=== PATIENT | male | born 1950 | race Caucasian/White ===

== ENCOUNTER 2016-08-18 08:34 | Emergency (ER) | payer BC ==
--- NOTE | 2016-08-18 09:12 | UC ---
Respiratory Complaint HPI - HPI Summary HPI Summary: COUGH AND SOB. ONSET 10 DAYS AGO . AT ONSET HE FELT FEVERISH, BODY ACHES. FEELING SOMEWHAT BETTER FAR BODY ACHES GO BUT COUGH IS WORSE AND FEELS MORE SOB. Cough worsened. Concern it is pneumonia. body aches and laryngitis gone for about 5 days . [ End ] - History of Current Complaint Chief Complaint: UCRespiratory Stated Complaint: COUGH, SHORTNESS OF BREATH Time Seen by Provider: 08/18/16 09:06 Hx Obtained From: Patient Onset/Duration: Gradual Onset Timing: Constant Severity Initially: Mild Severity Currently: Moderate Aggravating Factors: Exertion Alleviating Factors: Nothing Associated Signs And Symptoms: Positive: Nasal Congestion, Hoarseness, Sinus Discomfort - Risk Factors Cardiac Risk Factors: Hypertension - Allergies/Home Medications Allergies/Adverse Reactions: Allergies Allergy/AdvReac Type Severity Reaction Status Date / Time No Known Allergies Allergy Verified 08/18/16 08:38 Home Medications: Home Medications Xdtidhkuradef-Ggpogkyduk-Ngxsu [[place]-Winkelman Plus Day/Nig] 1 catalina PO PRN [History] Ramipril CAP* [Altace CAP*] 5 mg PO DAILY 08/18/16 [History Confirmed 08/18/16] PMH/Surg Hx/FS Hx/Imm Hx Previously Healthy: Yes Cardiovascular History: Hypertension - Surgical History Surgical History: Yes Surgery Procedure, Year, and Place: GALL BLADDSER REMOVAL , LEFT AND RIGHT HIP REPLACMENTS. DEGLOVED SKIN OF LEFT LEG INJURY - Family History Known Family History: Positive: None - Social History Occupation: Employed Full-time Lives: With Family Alcohol Use: Occasionally Substance Use Type: None Smoking Status (MU): Former Smoker Type: Cigarettes Have You Smoked in the Last Year: No When Did the Patient Quit Smoking/Using Tobacco: 2009 Review of Systems Constitutional: Fever, Chills, Fatigue Skin: Negative Eyes: Negative ENT: Nasal Discharge Respiratory: Shortness Of Breath, Cough Cardiovascular: Negative Gastrointestinal: Negative Genitourinary: Negative Motor: Negative Neurovascular: Negative Musculoskeletal: Negative Neurological: Negative Psychological: Negative All Other Systems Reviewed And Are Negative: Yes Physical Exam Triage Information Reviewed: Yes Appearance: Well-Appearing, No Pain Distress, Well-Nourished Vital Signs: Initial Vital Signs Temp 96.9 F 08/18/16 08:40 Pulse 92 08/18/16 08:40 Resp 24 08/18/16 08:40 BP 157/87 08/18/16 08:40 Pulse Ox 98 08/18/16 08:40 Vital Signs Reviewed: Yes Eye Exam: Normal ENT Exam: Normal Dental Exam: Normal Neck exam: Normal Neck: Positive: 1 Respiratory Exam: Normal Respiratory: Positive: Chest non-tender, No respiratory distress, No accessory muscle use, Wheezing - RUL Cardiovascular Exam: Normal Abdominal Exam: Normal Musculoskeletal Exam: Normal Neurological Exam: Normal Psychological Exam: Normal Skin Exam: Normal UC Diagnostic Evaluation - Laboratory O2 Sat by Pulse Oximetry: 98 Respiratory Course/Dx - Course Course Of Treatment: present for > 1 week and cough and congestion worsening, treat at this time tp prevent pneumonia - Differential Dx/Diagnosis Differential Diagnosis/HQI/PQRI: Bronchitis, Lower Resp Infection, Sinusitis Provider Diagnoses: bronchitis Discharge - Discharge Plan Condition: Good Disposition: HOME Prescriptions: Albuterol HFA INHALER* [Ventolin HFA Inhaler*] 1 - 2 puff INH Q6H PRN #1 mdi PRN Reason: Wheezing Amoxicillin/Clavulanate TAB* [Augmentin TAB 875*] 875 mg PO BID #20 tab Benzonatate [Benzonatate 200 MG CAP] 200 mg PO TID PRN #20 cap PRN Reason: Cough Patient Education Materials: Acute Bronchitis (ED) Additional Instructions: Please follow up with your primary care doctor in 3 days to ensure you are improving in your symptoms
[2016-08-18 09:20] VITALS: BP 157/87
== END 2016-08-18 09:24 | disposition home or self-care (01) ==
LOC: UCCORT 08:34
DX: J40 Bronchitis, not specified as acute or chronic (principal); I10 Essential (primary) hypertension; Z90.49 Acquired absence of other specified parts of digestive tract; Z96.643 Presence of artificial hip joint, bilateral; Z87.891 Personal history of nicotine dependence
CPT/HCPCS: 93005; 99212; G0463

== ENCOUNTER 2016-08-22 16:16 | Emergency (ER) | payer BC ==
[2016-08-22 16:35] VITALS: BP 138/75
[2016-08-22] MEDS ORDERED: Albuterol/Ipratropium NEB.SOL* Albuterol 2.5 MG/Ipratropium 0.5 MG 3 ML INH ONE (16:46)
--- NOTE | 2016-08-22 17:05 | UC ---
Respiratory Complaint HPI - HPI Summary HPI Summary: Patient presents with worsening cough, SOB, chest pain with cough and weakness for over 2 weeks now. He was seen here last week and was prescribed tessalon and augmentin without relief. He is still feeling SOB, with sweats, aches and chills. Cough and SOB worse with recumbent position, better with orthostasis. He denies sleep apnea. Denies COPD or other lung problems. Unknown fever. Feels though he coughed so hard, he pulled a muscle. He is obese and has difficulty breathing on exam. Unable to speak in full sentences. He is a business analyst. Smoking history is [address] Osborn saw him 4 days ago in , was given albuterol and tessalon and augmentin without relief. Today after nebulizer treatment, symptoms did not improve. Denies chest pain today, but notes to chest pain 4 days ago. EKG 4 days ago NSR. Chest xray with nipple markers shows pulmonary nodule in the left lower lung. Treatment options discussed, but recommended to to ED for further imaging and workup d/t not wanting to follow up with doctors. - History of Current Complaint Chief Complaint: UCRespiratory Stated Complaint: COUGH/BRONCHITIS Time Seen by Provider: 08/22/16 16:40 Hx Obtained From: Patient Onset/Duration: Gradual Onset Timing: Constant Severity Initially: Moderate Severity Currently: Moderate Pain Intensity: 5 Pain Scale Used: 0-10 Numeric Character: Cough: Productive Aggravating Factors: Deep Breaths, Recumbent Position Alleviating Factors: Upright Position, Spontaneous Resolution Associated Signs And Symptoms: Positive: Dyspnea, Pleuritic Chest Pain, URI, Nasal Congestion, Sinus Discomfort - Risk Factors Pulmonary Embolism Risk Factors: Negative Cardiac Risk Factors: Negative Tuberculosis Risk Factors: Negative - Allergies/Home Medications Allergies/Adverse Reactions: Allergies Allergy/AdvReac Type Severity Reaction Status Date / Time Benzonatate Allergy Intermediate Dizziness Verified 08/22/16 16:25 PMH/Surg Hx/FS Hx/Imm Hx Previously Healthy: Yes - Surgical History Surgical History: Yes Surgery Procedure, Year, and Place: GALL BLADDSER REMOVAL , LEFT AND RIGHT HIP REPLACMENTS. DEGLOVED SKIN OF LEFT LEG INJURY - Family History Known Family History: Positive: None - Social History Occupation: Employed Full-time Lives: With Family Alcohol Use: Occasionally Substance Use Type: None Smoking Status (MU): Former Smoker Type: Cigarettes Have You Smoked in the Last Year: No When Did the Patient Quit Smoking/Using Tobacco: 2009 Review of Systems Constitutional: Fever, Fatigue Skin: Negative Eyes: Negative ENT: Nasal Discharge Respiratory: Shortness Of Breath, Cough Cardiovascular: Chest Pain Gastrointestinal: Negative Motor: Negative Neurovascular: Negative Neurological: Negative Psychological: Negative All Other Systems Reviewed And Are Negative: Yes Physical Exam Triage Information Reviewed: Yes Appearance: Ill-Appearing, Obese Vital Signs: Initial Vital Signs Temp 97.7 F 08/22/16 16:27 Pulse 103 08/22/16 16:27 Resp 26 08/22/16 16:27 BP 138/75 08/22/16 16:27 Pulse Ox 95 08/22/16 16:27 Vital Signs Reviewed: Yes Eye Exam: Normal Eyes: Positive: Conjunctiva Clear ENT: Positive: Hearing grossly normal, Pharynx normal Neck exam: Normal Neck: Positive: Supple, Nontender Respiratory: Positive: Respiratory distress, Decreased breath sounds, Rhonchi - RLL Cardiovascular Exam: Normal Cardiovascular: Positive: RRR Musculoskeletal Exam: Normal Musculoskeletal: Positive: Strength Intact Neurological: Positive: Alert Psychological Exam: Normal Psychological: Positive: Normal Response To Family UC Diagnostic Evaluation - Laboratory O2 Sat by Pulse Oximetry: 95 Respiratory Course/Dx - Course Course Of Treatment: Patient presents with worsening cough, SOB since 2 weeks. He has been on Amoxicillin, tessalon and albuterol without relief. See HPI. Patient is encouraged to go to ED for further workup of left lower lung nodule seen on xray. - Differential Dx/Diagnosis Differential Diagnosis/HQI/PQRI: Bronchitis, Laryngitis, Lower Resp Infection, Sinusitis Provider Diagnoses: Bronchitis/ lung nodule Discharge - Discharge Plan Condition: Stable Disposition: HOME Prescriptions: Ipratropium HFA INHALER(NF) [Atrovent Hfa Inhaler(NF)] 1 puff INH QID #1 mdi guaiFENesin/CODIEN 100MG-10MG* [Robitussin AC 100Mg-10Mg*] 10 ml PO BEDTIME # 100 udc MDD 10 predniSONE TAB* [Deltasone TAB*] 50 mg PO DAILY #5 tab MDD 1 Patient Education Materials: Acute Bronchitis (ED) Referrals: Non Staff,Doctor [Primary Care Provider] - Additional Instructions: Follow up with PCP Prednisone 50mg daily for 5 days Ipratroprium up to four puffs daily for shortness of breath Robitussin with Codeine 2 teaspoons every night before bed If you develop worsening symptoms, please go to the ED.
--- NOTE | 2016-08-22 17:21 | RAD ---
INDICATION: Cough and rhonchi in the right lower lobe. COMPARISON: There are no prior studies available for comparison. TECHNIQUE: Dual-energy PA and lateral views of the chest were obtained. FINDINGS: The heart is within normal limits in size. Mediastinal and hilar contours appear within normal limits. The lungs are hyperinflated. There is a faint 1 cm nodular density which projects above the left lung base possibly representing a nipple shadow although nonspecific. The lungs are otherwise clear. No pleural effusion is present. IMPRESSION: 1. NO EVIDENCE FOR ACUTE FINDING. 2. THERE IS A FAINT 1 CM NODULAR DENSITY WHICH PROJECTS ABOVE THE LEFT LUNG BASE POSSIBLY REPRESENTING A NIPPLE SHADOW. RECOMMEND A REPEAT PA FILM WITH NIPPLE MARKERS.
--- NOTE | 2016-08-22 18:00 | RAD ---
INDICATION: Shortness of breath, repeat with nipple markers. COMPARISON: Comparison is made with prior chest x-ray study of the same date. TECHNIQUE: Dual-energy PA views of the chest were obtained. FINDINGS: The heart is within normal limits in size. Mediastinal and hilar contours appear within normal limits. The lungs are slightly hyperinflated. The previously noted small nodular density at the lateral left lung base does not correspond with the patient's nipple shadow. The lungs are otherwise clear. No pleural effusion is seen. IMPRESSION: THE PREVIOUSLY NOTED FAINT NODULAR DENSITY AT THE LEFT LUNG BASE DOES NOT CORRESPOND WITH THE PATIENT'S NIPPLE SHADOW. RECOMMEND AN OUTPATIENT NONCONTRAST CT OF THE CHEST FOR FURTHER EVALUATION.
== END 2016-08-22 18:10 | disposition home or self-care (01) ==
LOC: UCCORT 16:16
DX: J40 Bronchitis, not specified as acute or chronic (principal); R91.1 Solitary pulmonary nodule; Z87.891 Personal history of nicotine dependence
CPT/HCPCS: 71010; 71020; 99213; A9270-GY; G0463

== ENCOUNTER 2018-12-29 09:47 | Emergency (ER) | payer BC ==
--- OUTSIDE RECORDS SUMMARY | 2018-12-29 10:21 | XMS REPORT | Continuity of Care Document ---
:1950 External Reference #:[id number] Author Name Yoshi Gill DO, MPH Address [address] [facility], [address] [place] [address] Care Team Providers Name Role Phone Faraz Webber M.D. - Family Care Team Information Regional Extension Service Specialist [phone] Medicine Ad Bentley N.P. - Internal Care Team Information Regional Extension Service Specialist [phone] Medicine Problems Description No Information Available Social History Type Date Description Comments Sex Unknown Cigars Former Cigar Smoker .An Occasional Cigar ETOH Use Rarely consumes alcohol Tobacco Use Start: Unknown End: Unknown Patient is a former smoker Smoking Status Reviewed: 11/19/18 Patient is a former smoker Allergies, Adverse Reactions, Alerts Active Allergies Reaction Severity Comments Date Acetaminophen nausea 01/26/2014 Inactive Allergies NKDA 06/24/2008 Medications Active Medications SIG Qnty Indications Ordering Provider Date Oxycodone HCL si-2 by mouth 240tabs Yoshi Gill DO, 04/01/2015 30mg every 4-6 hours MPH Tablets as directed chronic pain patient Zipsor 1 by mouth three 90caps Yoshi Gill DO, 01/26/2014 25mg Capsules times a day as MPH directed chronic pain. Silodosin 1 by mouth every Unknown 8mg day Capsules Immunizations Description No Information Available Vital Signs Date Vital Result Comment 11/19/2018 10:49am BP Systolic 140 mmHg BP Diastolic 82 mmHg Heart Rate 86 /min Respiratory Rate 20 /min Height 67 inches 5'7" Weight 284.00 lb Pain Level 7 Pain at this time. Pain Level With Medicine 6 on average with meds Pain Level Without Medicine 9 without meds BMI (Body Mass Index) 44.5 kg/m2 10/20/2018 10:47am BP Systolic 142 mmHg BP Diastolic 86 mmHg Heart Rate 84 /min Respiratory Rate 20 /min Height 67 inches 5'7" Weight 287.00 lb Pain Level 5 Pain at this time. 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 Office Visit 09/12/2018 11:15a Main Office as Yoshi Gill G89.29 Other chronic Of 04/18/13 DO, MPH pain M25.551 Pain in right hip M25.552 Pain in left hip M54.5 Low back pain 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 Office Visit 08/21/2018 11:00a Main Office as Yoshi Gill G89.29 Other chronic Of 04/18/13 DO, MPH pain M54.5 Low back pain M25.551 Pain in right hip M25.552 Pain in left hip 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 Office Visit 07/22/2018 10:45a Main Office as Yoshi Gill G89.29 Other chronic Of 04/18/13 DO, MPH pain M54.5 Low back pain M25.551 Pain in right hip M25.552 Pain in left hip E66.01 Morbid (severe) obesity due to excess calories 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 Z71.89 Other specified counseling Office Visit 06/20/2018 10:45a Main Office as Yoshi Gill G89.29 Other chronic Of 04/18/13 DO, MPH pain M54.5 Low back pain M25.552 Pain in left hip M25.551 Pain in right hip Z79.891 FPC (current) use of opiate analgesic Office Visit 05/22/2018 11:15a Main Office as Yoshi Gill, G89.29 Other chronic Of 04/18/13 DO, MPH pain M25.552 Pain in left hip M25.551 Pain in right hip M54.5 Low back pain 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 Assessments Date Code Description Provider 11/19/2018 G89.29 Other chronic pain Gill, Yoshi, DO, MPH 11/19/2018 M25.552 Pain in left hip Gill, Yoshi, DO, MPH 11/19/2018 M25.551 Pain in right hip Gill, Yoshi, DO, MPH 11/19/2018 M54.5 Low back pain Gill, Yoshi, DO, MPH 11/19/2018 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 Gill, Yoshi , DO, MPH 10/20/2018 G89.29 Other chronic pain Gill, Yoshi, DO, MPH 10/20/2018 M54.5 Low back pain Gill, Yoshi, DO, MPH 10/20/2018 M25.552 Pain in left hip Gill, Yoshi, DO, MPH 10/20/2018 M25.551 Pain in right hip Gill, Yoshi, DO, MPH 10/20/2018 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 Gill, Yoshi , DO, MPH 09/12/2018 G89.29 Other chronic pain Gill, Yoshi, DO, MPH 09/12/2018 M25.551 Pain in right hip Gill, Yoshi, DO, MPH 09/12/2018 M25.552 Pain in left hip Gill, Yoshi, DO, MPH 09/12/2018 M54.5 Low back pain Gill, Yoshi, DO, MPH 09/12/2018 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 Gill, Yoshi , DO, MPH 08/21/2018 G89.29 Other chronic pain Gill, Yoshi, DO, MPH 08/21/2018 M54.5 Low back pain Gill, Yoshi, DO, MPH 08/21/2018 M25.551 Pain in right hip Gill, Yoshi, DO, MPH 08/21/2018 M25.552 Pain in left hip Gill, Yoshi, DO, MPH 08/21/2018 Z79.891 FPC (current) use of opiate analgesic Gill, Yoshi , DO, MPH 07/22/2018 G89.29 Other chronic pain Gill, Yoshi, DO, MPH 07/22/2018 M54.5 Low back pain Gill, Yoshi, DO, MPH 07/22/2018 M25.551 Pain in right hip Gill, Yoshi, DO, MPH 07/22/2018 M25.552 Pain in left hip Gill, Yoshi, DO, MPH 07/22/2018 E66.01 Morbid (severe) obesity due to excess Gill, Yoshi, DO, MPH calories 07/22/2018 Z79.891 FPC (current) use of opiate analgesic Gill, Yoshi , DO, MPH 07/22/2018 Z71.89 Other specified counseling Gill, Yoshi, DO, MPH 06/20/2018 G89.29 Other chronic pain Gill, Yoshi, DO, MPH 06/20/2018 M54.5 Low back pain Gill, Yoshi, DO, MPH 06/20/2018 M25.552 Pain in left hip Gill, Yoshi, DO, MPH 06/20/2018 M25.551 Pain in right hip Gill, Yoshi, DO, MPH 06/20/2018 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 Symptoms and complaints discussed and reviewed today. No significant changes in physical findings. Continue current medical pain management.M25.552 Pain in left hipM25.551 Pain in right hipComments:Chronic. Symptoms and complaints discussed and reviewed today. No significant changes in physical findings. Continue current medical pain management.M54.5 Low back painComments:Chronic. Symptoms and complaints discussed and reviewed today.No changes in physical findings. Patient is stable and comfortable when current medical therapy is rendered.Z79.891 FPC (current) use of opiate analgesicNew Labs:Urine Drug Screen, Ordered: 11/19/18Comments:Urine drug screen sample taken today to monitor opiate use and to monitor use of illicit substances.Will discuss results at next appointment.The following tests were ordered:6 AM, AMPH, IVAN, KI, BUP, CARIS, COCM, COT, ETG, FENT, MCSHSG, OPI, OXY, PCP, TAPEN, XTSY, ZOLP. A urine drug test (UDT) was ordered for this patient and collected on site today. Creatinine has been ordered as well for specimen validity, not for kidney function. Preliminary UDT results are not final and should not be used to determine patient care or plan of treatment. Initially a qualitative immunoassay screen will be done. Any inconsistent or positive findings will be further tested with a more comprehensive quantitative confirmation LCMS study. It is part of the treatment process of prescribing controlled substances and is considered standard of care.AllComments:Continue current medical pain management; injection therapy, osteopathic manipulation, PT / modalities, and consults as needed to manage chronic pain.Non - opioid pain management discussed and optionsdiscussed.Side effects discussed; anticipatory guidance given. Patient clearly understand and agree with all medical treatments and suggestions. All medicines prescribed are adequate and appropriate for this patient's complaint of pain, medical history, physical, and personal goals.Goals of Treatment are to provide adequate and appropriate multidisciplinary medical pain management to increase/ maintain patient's quality of life and functionality while maintaining satisfactory side effect profile andminimizing longterm end-organ damage. Importance of regular nutrition throughout the day discussed.Activity as toleratedContinue with PCP Functional Status Description No Information Available Mental Status Description No Information Available Referrals Description No Information Available
--- OUTSIDE RECORDS SUMMARY | 2018-12-29 10:21 | XMS REPORT | Continuity of Care Document ---
:1950 External Reference #:[id number] Author Name Yoshi Gill DO, MPH Address [address] [facility] [address], [address] [place] [address] Care Team Providers Name Role Phone Faraz Webber M.D. - Family Care Team Information Client Service Supervisor [phone] Medicine Ad Bentley N.P. - Internal Care Team Information Client Service Supervisor [phone] Medicine Problems Description No Information Available Social History Type Date Description Comments Sex Unknown Cigars Former Cigar Smoker .An Occasional Cigar ETOH Use Rarely consumes alcohol Tobacco Use Start: Unknown End: Unknown Patient is a former smoker Smoking Status Reviewed: 12/19/18 Patient is a former smoker Allergies, Adverse [...] Available Vital Signs Date Vital Result Comment 12/19/2018 10:54am BP Systolic 140 mmHg BP Diastolic 86 mmHg Heart Rate 82 /min Respiratory Rate 20 /min Height 67 inches 5'7" Weight 240.00 lb Pain Level 6 Pain at this time. Pain Level With Medicine 5 on average with meds Pain Level Without Medicine 9 without meds BMI (Body Mass Index) 37.6 kg/m2 11/19/2018 10:49am BP Systolic 140 mmHg BP Diastolic 82 mmHg Heart Rate 86 /min Respiratory Rate 20 /min Height 67 inches 5'7" Weight 284.00 lb Pain Level 7 Pain at this time. 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 Office Visit 10/20/2018 10:45a Main Office as Yoshi Gill G89.29 Other chronic Of 04/18/13 DO, MPH pain M54.5 Low back pain M25.552 Pain in left hip M25.551 Pain in right hip Z79.891 intermediate (current) use of opiate analgesic Office Visit 09/12/2018 11:15a Main Office as Yoshi Gill G89.29 Other chronic Of 04/18/13 DO, MPH pain M25.551 Pain in right hip M25.552 Pain in left hip M54.5 Low back pain Z79.891 intermediate (current) use of opiate analgesic Office Visit 08/21/2018 11:00a Main Office as Yoshi Gill G89.29 Other chronic Of 04/18/13 DO, MPH pain M54.5 Low back pain M25.551 Pain in right hip M25.552 Pain in left hip 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 Office Visit 07/22/2018 10:45a Main Office as Yoshi Gill G89.29 Other chronic Of 04/18/13 DO, MPH pain M54.5 Low back pain M25.551 Pain in right hip M25.552 Pain in left hip E66.01 Morbid (severe) obesity due to excess calories Z79.891 intermediate (current) use of opiate analgesic Z71.89 Other specified counseling Assessments Date Code Description Provider 12/19/2018 G89.29 Other chronic pain Gill, Yoshi, DO, MPH 12/19/2018 M54.5 Low back pain Gill, Yoshi, DO, MPH 12/19/2018 M25.551 Pain in right hip Gill, Yoshi, DO, MPH 12/19/2018 M25.552 Pain in left hip Gill, Yoshi, DO, MPH 12/19/2018 Z79.891 intermediate (current) use of opiate analgesic Gill, Yoshi , DO, MPH 11/19/2018 G89.29 Other chronic pain Gill, Yoshi, DO, MPH 11/19/2018 M25.552 Pain in left hip Gill, Yoshi, DO, MPH 11/19/2018 M25.551 Pain in right hip Gill, Yoshi, DO, MPH 11/19/2018 M54.5 Low back pain Gill, Yoshi, DO, MPH 11/19/2018 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 Gill, Yoshi , DO, MPH 10/20/2018 G89.29 Other chronic pain Gill, Yoshi, DO, MPH 10/20/2018 M54.5 Low back pain Gill, Yoshi, DO, MPH 10/20/2018 M25.552 Pain in left hip Gill, Yoshi, DO, MPH 10/20/2018 M25.551 Pain in right hip Gill, Yoshi, DO, MPH 10/20/2018 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 Gill, Yoshi , DO, MPH 09/12/2018 G89.29 Other chronic pain Gill, Yoshi, DO, MPH 09/12/2018 M25.551 Pain in right hip Gill, Yoshi, DO, MPH 09/12/2018 M25.552 Pain in left hip Gill, Yoshi, DO, MPH 09/12/2018 M54.5 Low back pain Gill, Yoshi, DO, MPH 09/12/2018 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 Gill, Yoshi , DO, MPH 08/21/2018 G89.29 Other chronic pain Gill, Yoshi, DO, MPH 08/21/2018 M54.5 Low back pain Yoshi Gill DO, MPH 08/21/2018 M25.551 Pain in right hip Yoshi Gill DO MPH 08/21/2018 M25.552 Pain in left hip Yoshi Gill DO, MPH 08/21/2018 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 Yoshi Gill DO MPH 07/22/2018 G89.29 Other chronic pain Yoshi Gill DO MPH 07/22/2018 M54.5 Low back pain Yoshi Gill DO MPH 07/22/2018 M25.551 Pain in right hip Yoshi Gill DO MPH 07/22/2018 M25.552 Pain in left hip Yoshi Gill DO, MPH 07/22/2018 E66.01 Morbid (severe) obesity due to excess Yoshi Gill DO MPH calories 07/22/2018 Z79.891 intermediate (current) use of opiate analgesic Yoshi Gill DO, MPH 07/22/2018 Z71.89 Other specified counseling Yoshi Gill DO, MPH Plan of Treatment Future Appointment(s):01/20/2019 10:30 am - Yoshi Gill DO MPH at Main Office as Of 04/18/1409 - Yoshi Gill DO, MPHG89.29 Other chronic painComments:Chronic. Symptoms and complaints discussed and reviewed today. No significant changes in physical findings. Continue current medical pain management.M54.5 Low back painComments:Chronic. Symptoms and complaints discussed and reviewed today.No changes in physical findings. Patient is stable and comfortable when current medical therapy is rendered.M25.551 Pain in right hipComments:Chronic. Symptoms and complaints discussed and reviewed today. No significant changes in physical findings. Continue current medical pain management.M25.552 Pain in left hipComments:Chronic. Symptoms and complaints discussed and reviewed today. No significant changes in physical findings. Continue current medical pain management.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New Labs:Urine Drug Screen, Ordered: 12/19/18Comments:Urine drug screen sample taken today to monitor [...] while maintaining satisfactory side effect profile andminimizing termite inspector end-organ damage. Importance of regular nutrition throughout the day discussed.Activity as toleratedContinue with PCP Functional Status Description No Information Available Mental Status Description No Information Available Referrals Description No Information Available
[2018-12-29 10:36] VITALS: BP 156/89
--- NOTE | 2018-12-29 10:42 | UC ---
Skin Complaint HPI - HPI Summary HPI Summary: Patient presents to urgent care for evaluation of a "lump" that he noted by his right collarbone this weekend. Patient states is not painful. Patient noticed it Saturday when he was wrestling with his son. No pain no redness. No shortness of breath. No nausea vomiting. Patient with a history of hypertension remote history of smoking. Patient does not have any known history of cancer. Patient's medications reviewed this visit. - History of Current Complaint Chief Complaint: UCUpperExtremity Time Seen by Provider: 12/29/18 10:42 Stated Complaint: RIGHT SHOULDER COMPLAINT Hx Obtained From: Patient Pain Intensity: 0 - Allergy/Home Medications Allergies/Adverse Reactions: Allergies Allergy/AdvReac Type Severity Reaction Status Date / Time linagliptin Allergy Unknown Verified 12/29/18 10:23 Reaction Details Home Medications: Home Medications Diclofenac Potassium [Zipsor] 1 tab PO ONCE 12/29/18 [History Confirmed 12/29/18 ] Silodosin 4 mg PO BID 12/29/18 [History Confirmed 12/29/18] metFORMIN* [Glucophage 1000 MG TAB *] 1,000 mg PO BID 12/29/18 [History Confirmed 12/29/18] PMH/Surg Hx/FS Hx/Imm Hx Previously Healthy: Yes - Surgical History Surgical History: Yes Surgery Procedure, Year, and Place: Cholycystectomy. LEFT AND RIGHT HIP REPLACMENTS. DEGLOVED SKIN OF LEFT LEG INJURY. R carpal tunnel - Family History Known Family History: Positive: Non-Contributory - Social History Lives: With Family Alcohol Use: Rare Substance Use Type: None Smoking Status (MU): Former Smoker Type: Cigarettes Amount Used/How Often: 2PPD X 25 YRS, QUIT 2009 Have You Smoked in the Last Year: No When Did the Patient Quit Smoking/Using Tobacco: 2009 Review of Systems All Other Systems Reviewed And Are Negative: Yes Constitutional: Positive: Negative Skin: Positive: Other - right upper chest soft tissue mass Physical Exam - Summary Physical Exam Summary: Vital Signs Reviewed: Yes A+Ox3, no distress Eyes: Conjunctiva Clear, CHONG. EOM intact and full ENT: Hearing grossly normal TM x 2 clear, mmoist, uvula midline, no exudate, no erythema Neck: Positive: Supple Respiratory: Positive: No respiratory distress, No accessory muscle use + CTA throughout no w/r Cardiovascular: RRR nl s1, s2 no m/r CBT <2 sec abd soft + BS nt/nd no guarding, no distension Musculoskeletal Exam: DUMONT x 4 without difficulty Strength Intact, ROM Intact Neurological: Positive: Alert, + sensation throughout Psychological: Positive: Normal Response To examiner Skin: Positive: no rash, no ecchymosis right anterior chest - just inferior to midclavicle pt with 3x2cm palpable, visible mass. no tender, no erythema, no skin changes, moblile no axillary LA Triage Information Reviewed: Yes Vital Signs: Initial Vital Signs Temp 97.7 F 12/29/18 10:26 Pulse 80 12/29/18 10:26 Resp 18 12/29/18 10:26 BP 156/89 12/29/18 10:26 Pulse Ox 98 12/29/18 10:26 Re-Evaluation - Re-Evaluation First Eval Comment: REviewed CXR and US with pt. unclear source - spoke to CHAKA at PCP office. will see pt Wed at [address] scan. will check screening labs today in anticipation of CT scan. pt states agreement and understanding of plan Course/Dx - Course Course Of Treatment: pt presents with a recently noted right anterior soft tissue mass. non tender.. No history of traua, pain, or recent illness VSS ot with 2x3 cm mobile mass right atnerior chest - mid clavicular line - no appreciable LA d/w pt differential darshana get CXR and us anticipat will need follow-up - pt states understanding and agreement with plan elevated BP - history of similar - f.u with PCP - Diagnoses Provider Diagnosis: Soft tissue mass Discharge ED - Sign-Out/Discharge Documenting (check all that apply): Patient Departure All imaging exams completed and their final reports reviewed: No Studies - Discharge Plan Condition: Stable Disposition: HOME Patient Education Materials: Soft Tissue Mass (ED) Referrals: Tressa Thorpe, ANGELIKA [Nurse Practitioner] - ([facility] office 1:30m Saturday, ) Rodriguez Reinoso [Primary Care Provider] - Additional Instructions: As discussed, this lesion needs further evaluation and treatment. As discussed. It is recommended that you have a CAT scan with and without out the IV dye that includes evaluation of her neck as well as her chest. You had blood work done today to prepare you for this. You have an appointment at the [place] primary care office this coming 12/31/18. It is important to keep this appointment. This provider was scheduled for follow-up studies. If you have increased pain, swelling, fevers or any other concern is recommended to go immediately to emergency department. - Billing Disposition and Condition Condition: STABLE Disposition: Home
[2018-12-29 19:36] LABS: Hematocrit 46 % (42-52); Hemoglobin 15.9 g/dL (14.0-18.0); Mean Corpuscular HGB Conc 34 g/dL (31-36); Mean Corpuscular Hemoglobin 30 pg (27-31); Mean Corpuscular Volume 88 fL (80-94); Mean Platelet Volume 8.1 fL (7.4-10.4); Platelet Count 314 10^3/uL (150-450); Red Blood Count 5.24 10^6 /uL (4.18-5.48); Red Cell Distribution Width 14 % (10-15); White Blood Count 8.3 10^3/uL (3.5-10.8)
[2018-12-29 19:41] LABS: Potassium 4.5 mmol/L (3.5-5.0)
[2018-12-29 19:47] LABS: BUN/Creatinine Ratio 15.9 (8-20); EGFR African American 113.1 (>60); EGFR Non-African American 93.4 (>60)
[2018-12-29 22:30] LABS: ABS Basophils 0.1 10^3/ul (0-0.2); ABS Eosinophils 0.6 10^3/ul (0-0.6); ABS Monocytes 0.9 10^3/ul (0-0.8); ABS Neutrophils 3.7 10^3/ul (1.5-7.7); Eosinophil % 7.7 %; Lymphocyte % 35.8 %; Nucleated Red Blood Cells % 0.1
== END 2018-12-29 12:12 | disposition home or self-care (01) ==
LOC: UCCORT 09:47
DX: M79.89 Other specified soft tissue disorders (principal); Z87.891 Personal history of nicotine dependence; Z88.8 Allergy status to other drugs, medicaments and biological substances
CPT/HCPCS: 36415; 71046; 76604; 80048; 85025; 99211; G0463